=== PATIENT | male | born 1955 | race African-American/Black ===

== ENCOUNTER 2023-09-13 15:28 | Emergency (ER) | payer MEDICARE, MEDICAID ==
[~2023-09-13] VITALS: Ht 185.4 cm; Wt 85.0 kg
[2023-09-13 15:37] VITALS: TEMP 98; O2SAT 99
[2023-09-13 17:43] VITALS: BP 136/78; PULSE 88; RESP 16
== END 2023-09-13 17:44 | disposition home or self-care (01) ==
LOC: ER 15:28
DX: S40.012A Contusion of left shoulder, initial encounter (principal); S80.212A Abrasion, left knee, initial encounter; Y08.89XA Assault by other specified means, initial encounter; Y93.89 Activity, other specified; Y92.89 Other specified places as the place of occurrence of the external cause; Y99.8 Other external cause status
CPT/HCPCS: 99284